=== PATIENT | female | born 1995 | race African-American/Black ===

== ENCOUNTER 2017-02-11 11:13 | Emergency (ER) | payer SELFPAY ==
[2017-02-11 12:22] LABS: Bilirubin Negative (Negative); Blood, Urine Large (Negative); Glucose, Urine (Dipstick) Negative (Negative); Ketone, Urine Negative (Negative); Nitrite Negative (Negative); Protein, Urine (Dipstick) Negative (Neg-Trace); Urobilinogen 0.2 mg/dL (0.2-1.0)
[2017-02-11 12:26] LABS: Bacteria/HPF None Seen HPF (None Seen); Hyaline Casts/LPF 0-3 HYALINE CAST LPF (0-3 Hyaline); RBC/HPF 21-50 HPF (0-3)
[2017-02-11 13:12] LABS: #Basophils 0.1 thou/uL (0.0-0.2); #Eosinphils 0.1 thou/uL (0.0-0.7); #Lymphocytes 1.6 thou/uL (1.20-3.40); #Monocytes 0.7 thou/uL (0.11-0.59); #Neutrophils 10.4 thou/uL (1.40-6.50); %Basophils 0.8 % (0.0-1.0); %Eosinophils 0.5 % (0.0-10.0); %Lymphocytes 12.3 % (21.0-51.0); %Monocytes 5.5 % (0.0-10.0); Hematocrit 41.5 % (36.0-47.0); Mean Platelet Volume 8.2 fL (7.4-10.4); Red Blood Cell (RBC) Count 4.59 mill/uL (4.20-5.40); White Blood Cell (WBC) Count 12.8 thou/uL (4.8-10.8)
[2017-02-11 13:33] LABS: ALT (SGPT) 10 U/L (8-55); AST (SGOT) 14 U/L (5-34); Alkaline Phosphatase 74 U/L (40-150); Anion Gap 12 mmol/L (10-20); BUN (Urea Nitrogen) 7 mg/dL (7.0-18.7); Bilirubin, Total Less than 0.2 mg/dL (0.2-1.2); Calc. Creatinine Clearance 0 mL/min (70-130); Calcium 9.4 mg/dL (7.8-10.44); Carbon Dioxide 22 mmol/L (22-29); Chloride 107 mmol/L (98-107); Estimated GFR-MDRD Greater than 90; Globulin 3.5 g/dL (2.4-3.5); Lipase 9 U/L (8-78); Protein, Total 7.2 g/dL (6.0-8.3)
[2017-02-11] MEDS ORDERED: traMADol HCl 50 MG TAB ONE ×2 (13:34→13:40)
[2017-02-11] MEDS ORDERED: Nitrofurantoin Monohyd/M-Cryst 100 MG CAP PO SCH (13:45)
== END 2017-02-11 15:05 | disposition home or self-care (01) ==
LOC: ERS 11:13
DX: N39.0 Urinary tract infection, site not specified (principal); J45.909 Unspecified asthma, uncomplicated; I10 Essential (primary) hypertension; F41.9 Anxiety disorder, unspecified
CPT/HCPCS: 36415; 80053; 81003; 81015; 81025; 83690; 85025; 87086; 99284

== ENCOUNTER 2017-07-17 08:48 | Emergency (ER) | payer SELFPAY ==
[2017-07-17] MEDS ORDERED: Fluorescein Opthalmic Strip ONE (09:41)
[2017-07-17] MEDS ORDERED: Proparacaine 0.5% Opth 15 ML BOT ONE (09:41)
[2017-07-17] MEDS ORDERED: diphenhydrAMINE 25 MG CAP ONE (10:01)
[2017-07-17] MEDS ORDERED: Dexamethasone 4 MG TAB ONE (10:01)
== END 2017-07-17 10:43 | disposition home or self-care (01) ==
LOC: ERS 08:48
DX: H10.12 Acute atopic conjunctivitis, left eye (principal); H10.502 Unspecified blepharoconjunctivitis, left eye; J45.909 Unspecified asthma, uncomplicated; I10 Essential (primary) hypertension; F41.9 Anxiety disorder, unspecified
CPT/HCPCS: 99283; J8540